=== PATIENT | female | born 1970 | race Caucasian/White ===

== ENCOUNTER → 2017-03-28 | Outpatient (CLI) | payer OTHER ==
[~2017-03-28] MED LIST: Cryselle1 EACH; LEVSOD50
== END ==
LOC: LAB SHORT 17:57
DX: R19.7 Diarrhea, unspecified (principal)
CPT/HCPCS: 87077; 87086; 87186

== ENCOUNTER 2017-11-02 09:44 | Day surgery (SDC) | payer OTHER ==
[~2017-11-02] VITALS: Ht 175.3 cm; Wt 66.7 kg
[2017-11-02] MEDS ORDERED: Cryselle1 EACH (10:49)
[2017-11-02] MEDS ORDERED: LEVSOD50 (10:50)
== END 2017-11-02 11:50 | disposition home or self-care (01) ==
LOC: ORSCSDS 09:44
PROVIDERS: Internal Medicine Gastroenterology
PROC: 0DJD8ZZ Inspection of Lower Intestinal Tract, Via Natural or Artificial Opening Endoscopic (ICD-10-PCS; principal; 2017-11-02 11:00)
DX: K62.5 Hemorrhage of anus and rectum (principal); K62.89 Other specified diseases of anus and rectum; E03.9 Hypothyroidism, unspecified; J45.909 Unspecified asthma, uncomplicated; Z80.0 Family history of malignant neoplasm of digestive organs; Z79.3 Long term (current) use of hormonal contraceptives; Z79.899 Other long term (current) drug therapy
CPT/HCPCS: J7120

== ENCOUNTER 2019-01-21 06:50 | Day surgery (SDC) | payer BC ==
[~2019-01-21] VITALS: Ht 175.3 cm; Wt 70.1 kg
== END 2019-01-21 09:48 | disposition home or self-care (01) ==
LOC: ORSCSDS 06:50
PROVIDERS: Orthopaedic Surgery
PROC: 0SPD04Z Removal of Internal Fixation Device from Left Knee Joint, Open Approach (ICD-10-PCS; principal; 2019-01-21 08:00)
DX: T84.84XA Pain due to internal orthopedic prosthetic devices, implants and grafts, initial encounter (principal); E03.9 Hypothyroidism, unspecified; Z79.899 Other long term (current) drug therapy
CPT/HCPCS: J0171; J0690; J1100; J1885; J2250; J2370; J2405; J3010; J7120